=== PATIENT | male | born 1995 | race Caucasian/White ===

== ENCOUNTER 2017-09-27 16:24 | Emergency (ER) | payer BC ==
[2017-09-27 17:33] VITALS: BP 123/76
[2017-09-27] MEDS ORDERED: Lidocain 1% EPI 1:100,000 * 30 ML MDV INJ ONE (18:20)
[2017-09-27] MEDS ORDERED: Lidocaine 1% MPF wEPI 200,000* 30 ML SDV ONE (18:23)
--- NOTE | 2017-09-27 18:37 | UC ---
Skin Complaint HPI - HPI Summary HPI Summary: The patient is a 22-year-old male with a one-week history of progressively worsening left axillary mass. He tried to squeeze it and that seemed to make things worse. He has had no fever. The mass is enlarging daily. He now has overlying redness. He has no myalgias. He denies any nausea vomiting or diarrhea. - History of Current Complaint Chief Complaint: UCGeneralIllness Time Seen by Provider: 09/27/17 18:16 Stated Complaint: LEFT SIDE UNDER ARM LUMP Hx Obtained From: Patient Onset/Duration: Gradual Onset Skin Exposure Onset/Duration: Days Ago Timing: Constant Onset Severity: Mild Current Severity: Moderate Pain Intensity: 2 Pain Scale Used: 0-10 Numeric Location: Discrete Character: Swelling, Pain, Redness, Raised, Painful Aggravating Factor(s): Touch Alleviating Factor(s): Nothing Associated Signs & Symptoms: Positive: Tenderness. Negative: Nausea, Vomiting, Diaphoresis, Weakness, Fever, Chills, Chest Pain, Hoarseness, Throat Tightening , Syncope, Drainage, Bruising, Red Streaks - Allergy/Home Medications Allergies/Adverse Reactions: Allergies Allergy/AdvReac Type Severity Reaction Status Date / Time No Known Allergies Allergy Verified 09/27/17 17:33 Review of Systems Constitutional: Negative Skin: Negative Eyes: Negative ENT: Negative Respiratory: Negative Cardiovascular: Negative Gastrointestinal: Negative Genitourinary: Negative Motor: Negative Neurovascular: Negative Musculoskeletal: Negative Neurological: Negative Psychological: Negative Is Patient Immunocompromised?: No All Other Systems Reviewed And Are Negative: Yes PMH/Surg Hx/FS Hx/Imm Hx Previously Healthy: Yes - Surgical History Surgical History: None - Family History Known Family History: Positive: Hypertension - Social History Alcohol Use: Occasionally Substance Use Type: None Smoking Status (MU): Light Every Day Tobacco Smoker Type: Cigarettes Amount Used/How Often: 1/2 PPD Physical Exam Triage Information Reviewed: Yes Appearance: Well-Appearing, No Pain Distress, Well-Nourished Vital Signs: Initial Vital Signs Temp 97.5 F 09/27/17 17:28 Pulse 74 09/27/17 17:28 Resp 18 09/27/17 17:28 BP 123/76 09/27/17 17:28 Pulse Ox 100 09/27/17 17:28 Vital Signs Reviewed: Yes Eyes: Positive: Conjunctiva Clear ENT: Negative: Nasal congestion, Nasal drainage, Trismus, Muffled voice, Hoarse voice, Uvula midline Neck: Positive: Supple, Nontender, No Lymphadenopathy Respiratory: Positive: Lungs clear, Normal breath sounds, No respiratory distress, No accessory muscle use Cardiovascular: Positive: RRR, No Murmur Musculoskeletal: Positive: ROM Intact, No Edema Neurological: Positive: Alert Psychological Exam: Normal Skin Exam: Other - 1x2cm abscess in left axilla, overlying erthyema Course/Dx - Diagnoses Provider Diagnoses: left axillary abscess with overlying cellulitis Procedures - Procedure Summary Procedure Summary: procedure: I&D left axillary abscess procedure explained Time out sterile prep anest with 2 cc lido +epi incised with 11 blade 1 cc pus expressed sterile dressing applies culture obtained - Incision and Drainage Left Axilla Site: Left axilla Anesthesia: Local Instrument(s): Scalpel Discharge - Sign-Out/Discharge Documenting (check all that apply): Patient Departure - Discharge Plan Condition: Stable Disposition: HOME Prescriptions: DOXYcycline CAP(*) [DOXYcycline 100MG CAP(*)] 100 mg PO BID #14 cap Patient Education Materials: Abscess (ED) Referrals: No Primary Care Phys,NOPCP [Primary Care Provider] - Additional Instructions: warm compresses twice daily recheck in 2-3 days if not markedly improved recheck sooner for worsening symptoms a culture is pending - Billing Disposition and Condition Condition: STABLE Disposition: Home
== END 2017-09-27 18:54 | disposition home or self-care (01) ==
LOC: UCCORT 16:24
DX: L02.412 Cutaneous abscess of left axilla (principal); L03.112 Cellulitis of left axilla; F17.210 Nicotine dependence, cigarettes, uncomplicated
CPT/HCPCS: 10060; 87070; 87077; 87186; 87205; 87640; 87641; 99202; G0463; J2001

== ENCOUNTER 2018-02-07 15:00 | Emergency (ER) | payer SELFPAY ==
--- NOTE | 2018-02-07 15:17 | UC ---
Cardiac HPI - HPI Summary HPI Summary: 22 yo male presents with ?chest wall pain. He tells me that for the last 2 weeks he has noticed a "pinching" to his left anterior chest. About 2 weeks ago he was splitting wood and began to have "pinching" in his left anterior chest. This has been intermittent since. Last night his pain became more constant prompting his visit to today. Pain is made worse with shoulder flexion to 180deg. Denies headache, dizziness, SOB, n/v, numbness, or tingling. - History of Current Complaint Chief Complaint: UCChestPain Stated Complaint: CHEST COMPLAINT Hx Obtained From: Patient Onset/Duration: Gradual Onset Timing: Constant Initial Severity: Mild Current Severity: Mild Pain Intensity: 3 - Allergy/Home Medications Allergies/Adverse Reactions: Allergies Allergy/AdvReac Type Severity Reaction Status Date / Time No Known Allergies Allergy Verified 02/07/18 15:15 PMH/Surg Hx/FS Hx/Imm Hx - Additional Past Medical History Additional PMH: None - Surgical History Surgical History: None - Family History Known Family History: Positive: Hypertension - Social History Lives: With Family Alcohol Use: Occasionally Substance Use Type: None Smoking Status (MU): Light Every Day Tobacco Smoker Type: Cigarettes Amount Used/How Often: 1/2 PPD Household Exposure Type: Cigarettes Review of Systems All Other Systems Reviewed And Are Negative: Yes Constitutional: Positive: Negative Skin: Positive: Negative Respiratory: Positive: Negative Cardiovascular: Positive: Negative Gastrointestinal: Positive: Negative Genitourinary: Positive: Negative Motor: Positive: Negative Neurovascular: Positive: Negative Musculoskeletal: Positive: Other: - chest wall pain Neurological: Positive: Negative Psychological: Positive: Negative Physical Exam - Summary Physical Exam Summary: GENERAL: NAD. WDWN. No pain distress. SKIN: No rashes, sores, lesions, or open wounds. NECK: Supple. Nontender. No lymphadenopathy. CHEST: CTAB. No r/r/w. No accessory muscle use. Breathing comfortably and in no distress. CV: RRR. Without m/r/g. Pulses intact. Cap refill <2seconds ABDOMEN: Soft. NTTP. Bowel sounds present MSK: NTTP left anterior chest. "pinching" in chest is reproduced with left shoulder flexion and abduction. NTTP at left shoulder. NEURO: Alert. PSYCH: Age appropriate behavior. Triage Information Reviewed: Yes Vital Signs: Initial Vital Signs Temp 98.3 F 02/07/18 15:09 Pulse 76 02/07/18 15:09 Resp 16 02/07/18 15:09 BP 177/90 02/07/18 15:09 Pulse Ox 98 02/07/18 15:09 Vital Signs Reviewed: Yes - Assessment/Plan Course Of Treatment: EKbpm NSR. Early repol and baseline wander as read by Dr. Salazar. Suspect chest wall pain/muscle strain from splitting wood. Advised to try ibuprofen for discomfort and f/u with [facility] within 1 week for recheck. If symptoms worsen or if he develops new symptoms to go to ED. - Clinical Impression Provider Diagnosis: Chest wall pain Discharge - Sign-Out/Discharge Documenting (check all that apply): Patient Departure All imaging exams completed and their final reports reviewed: No Studies - Discharge Plan Condition: Stable Disposition: HOME Referrals: No Primary Care Phys,NOPCP [Primary Care Provider] - [facility] [Outside] - As Soon As Possible Additional Instructions: Please schedule a follow up appointment with a new PCP as soon as possible. The [facility] at the number below may be a good option and can usually see you within 1 week. If you chest pain returns or if you develop new symptoms - please go to the ER - Billing Disposition and Condition Condition: STABLE Disposition: Home
[2018-02-07 15:45] VITALS: BP 130/80
== END 2018-02-07 15:43 | disposition home or self-care (01) ==
LOC: UCEAST 15:00
DX: R07.89 Other chest pain (principal); F17.210 Nicotine dependence, cigarettes, uncomplicated
CPT/HCPCS: 93005; 99211; G0463